=== PATIENT | female | born 1995 | race Two or more races ===

== ENCOUNTER 2021-10-30 07:51 | Emergency (ER) | payer OTHER ==
[~2021-10-30] VITALS: Ht 157.5 cm; Wt 81.6 kg
[2021-10-30] MEDS ORDERED: SYNTHROID50 MCG (08:07)
== END 2021-10-30 11:08 | disposition home or self-care (01) ==
LOC: ER 07:51
DX: K29.70 Gastritis, unspecified, without bleeding (principal)

== ENCOUNTER 2023-08-02 07:26 | Day surgery (SDC) | payer OTHER ==
[2023-08-01 11:15] LABS: HEMATOCRIT 42.5 % (36.0-45.00); HEMOGLOBIN 14.5 g/dL (12.0-15.00); MEAN CELL VOLUME 88.5 fL (80.00-100.00); MEAN CORPUSCULAR HEMOGLOBIN 30.2 pg (27.00-32.0); MEAN CORPUSCULAR HGB CONC 34.2 g/dl (32.0-36.0); PLATELET COUNT 338 K/uL (150-450); RED BLOOD COUNT 4.79 M/uL (4.00-6.00)
[2023-08-01 11:57] LABS: INR 1.05; PARTIAL THROMBOPLASTIN TIME 29.9 SECONDS (22.0-34.0)
[2023-08-01 12:01] LABS: BILIRUBIN TOTAL 0.68 mg/dL (0.3-1.2); CALCIUM 9.4 mg/dL (8.5-10.1); CREATININE SERUM 0.62 mg/dL (0.55-1.02); GFR 114.62; GLOBULINA 3.3 G/DL (2.4-3.5); POTASSIUM 3.78 mEq/L (3.5-5.1); TOTAL PROTEIN 7.3 gm/dL (6.4-8.2)
[~2023-08-02 07:26] MED LIST: SYNTHROID50 MCG
== END 2023-08-02 16:30 | disposition home or self-care (01) ==
LOC: CIR.AMB 07:26
PROVIDERS: ATTEND Obstetrics & Gynecology
DX: O02.1 Missed abortion (principal); O72.2 Delayed and secondary postpartum hemorrhage; Z20.822 Contact with and (suspected) exposure to COVID-19